=== PATIENT | female | born 1950 | race Caucasian/White ===

== ENCOUNTER 2017-05-02 06:48 | Day surgery (SDC) | payer OTHER ==
[~2017-05-02 06:48] MED LIST: CALCIUM 1,0001 EACH PO; ESSENTIAL DAIL1 EACH PO
== END 2017-05-02 17:15 | disposition home or self-care (01) ==
LOC: CIR.AMB 06:48
DX: N87.1 Moderate cervical dysplasia (principal)

== ENCOUNTER 2022-06-17 05:45 | Day surgery (SDC) | payer OTHER ==
[~2022-06-17] VITALS: Ht 142.2 cm; Wt 56.2 kg
[~2022-06-17 05:45] MED LIST changes: +COZAAR50 MG PO; +LIPITOR20 MG PO
== END 2022-06-17 19:00 | disposition home or self-care (01) ==
LOC: CIR.AMB 05:45
PROVIDERS: ATTEND Obstetrics & Gynecology
DX: R87.612 Low grade squamous intraepithelial lesion on cytologic smear of cervix (LGSIL) (principal); N95.0 Postmenopausal bleeding; Z20.822 Contact with and (suspected) exposure to COVID-19; I10 Essential (primary) hypertension; E78.49 Other hyperlipidemia